=== PATIENT | female | born 1995 | race African-American/Black ===

== ENCOUNTER 2025-01-23 20:44 | Emergency (ER) | payer MEDICAID ==
[~2025-01-23] VITALS: Ht 162.6 cm; Wt 61.0 kg
[2025-01-23 20:59] VITALS: BP 122/74; PULSE 75; RESP 18; TEMP 36.8; O2SAT 98
== END 2025-01-24 00:05 | disposition left against medical advice (07) ==
LOC: ER 20:44
DX: T74.21XA Adult sexual abuse, confirmed, initial encounter (principal); R09.89 Other specified symptoms and signs involving the circulatory and respiratory systems; Y08.89XA Assault by other specified means, initial encounter; Y93.89 Activity, other specified; Y92.89 Other specified places as the place of occurrence of the external cause; Y99.8 Other external cause status
CPT/HCPCS: 99281